=== PATIENT | female | born 1955 | race Caucasian/White ===

== ENCOUNTER 2019-07-31 15:44 | Emergency (ER) | payer BC, OTHER, SELFPAY ==
--- NOTE | ~2019-07-31 | XR_ITS ---
EXAMINATION: XR chest 2V EXAM DATE: 07/31/2019 16:01 INDICATION: Cough and fever. COPD. TECHNIQUE: Frontal and lateral projections of the chest obtained and reviewed. There is no prior kobe dy for comparison. FINDINGS: Moderate hyperinflation. Left midlung zone granuloma. The lungs are clear. There are no p leural effusions. The cardiomediastinal silhouette is within normal limits. There is no pneumothora x suspected. The bones and soft tissues are unremarkable. IMPRESSION: Moderate hyperinflation. Reviewed, dictated and finalized at location B. [employer] IMPRESSION: Moderate hyperinflation.
--- NOTE | 2019-07-31 15:48 | ED.URI ---
HPI - URI/Sore Throat General Chief Complaint: Upper Respiratory Infection Stated Complaint: cough/fever/sob Time Seen by Provider: 07/31/19 16:05 Source: patient and RN notes reviewed Mode of arrival: ambulatory Limitations: no limitations History of Present Illness HPI Narrative: 63-year-old female with history of COPD, smoker presents with concern for cough with yellow sputum, increased shortness of breath. Reports she used her albuterol inhaler this morning with a little relief. She denies fever, nasal congestion, rhinorrhea, sore throat. MD elicited complaint: cough Related Data Home Medications Medication Instructions Recorded Confirmed escitalopram oxalate 10 mg DAILY 07/31/19 07/31/19 montelukast 10 mg HS 07/31/19 07/31/19 omeprazole 40 mg DAILY 07/31/19 07/31/19 rosuvastatin 5 mg DAILY 07/31/19 07/31/19 tiotropium bromide [Spiriva with 18 mcg INHALATION DIRECTED 07/31/19 07/31/19 HandiHaler] Allergies Allergy/AdvReac Type Severity Reaction Status Date / Time erythromycin base Allergy Mild VOMITING Verified 11/28/10 15:05 Penicillins Allergy Mild Rash Verified 02/13/19 20:23 Tetanus Vaccines and Toxoid Allergy Mild SWELLING Verified 11/28/10 15:05 Review of Systems Review of Systems: Narrative: CONSTITUTIONAL: Denies malaise, chills, sweats, or fever. EYES: Denies visual changes, redness, or discharge. ENT: Denies rhinorrhea, congestion, sinus pain, otalgia and sore throat. CARDIOVASCULAR: Denies chest pain, palpitations, or edema. RESPIRATORY: Reports cough, dyspnea. GASTROINTESTINAL: Denies abdominal pain, nausea, vomiting, diarrhea SKIN: Denies rash or itching. MUSCULOSKELETAL: Denies myalgia. NEUROLOGIC: Denies headache. All systems reviewed & are unremarkable except as noted in HPI and below PMFSH Social History Social History Gender identity (if verbalized by the patient): Female Comments At time of signature, agree with nursing past medical, surgical, social and family history. There is no relevant family history pertinent to the presenting complaint Exam Narrative: Exam Narrative: GENERAL: Well-appearing, well-nourished, and in no acute distress. HEAD: Normocephalic, atraumatic. EYES: PERRLA, conjunctivae clear, and EOMI. ENT: Nares clear, turbinates pink, no discharge. Mucous membranes moist. TM pearly sandoval with dull light reflex bilaterally; no tragal tenderness. Oropharynx not erythematous without lesions. Tonsils not enlarged and without exudate, no drooling, no hoarseness, no trismus. NECK: Supple. No lymphadenopathy CHEST: Clear to auscultation, breath sounds equal, lower lobes diminished. Scattered expiratory wheeze, no rhonchi, rales, or stridor. No respiratory distress, speaks in full sentences. HEART: Regular rate and rhythm. No murmur heard. Normal peripheral pulses. SKIN: Warm, dry, no rash. NEURO: Alert and oriented x3. PSYCH: Normal mood and affect Course Course Emergency Course: Patient is aware of diagnosis, understands and agrees to treatment plan. Anticipatory guidance given. Patient agrees to follow-up as directed and is aware of reasons to seek care at the emergency department. Portions of this record may have been created with voice recognition software Vital Signs Vital signs: Vital Signs Temperature 100.4 F H 07/31/19 15:54 Pulse Rate 101 H 07/31/19 15:54 Respiratory Rate 07/31/19 15:54 Blood Pressure 149/71 H 07/31/19 15:54 Pulse Oximetry 95 07/31/19 15:54 Temperature 100.4 F H 07/31/19 15:54 Pulse Rate 101 H 07/31/19 15:54 Respiratory Rate 20 07/31/19 15:54 Blood Pressure 149/71 H 07/31/19 15:54 Pulse Oximetry 95 07/31/19 15:54 Reviewed. Patient is diagnosed with hypertension MDM - URI/Sore Throat MDM Narrative Medical decision making narrative: Differential diagnosis considered: COPD exacerbation, strep pharyngitis, allergic rhinitis, upper respiratory tract infection, sinusitis, rhinosinusitis, nasopharyngitis. viral ph
[2019-07-31 15:54] VITALS: BP 149/71; PULSE 101; RESP 20; TEMP 38; O2SAT 95
== END 2019-07-31 16:19 | disposition home or self-care (01) ==
PROVIDERS: Emergency Provider Nurse Practitioner
DX: J40 Bronchitis, not specified as acute or chronic (principal); J44.9 Chronic obstructive pulmonary disease, unspecified; F17.200 Nicotine dependence, unspecified, uncomplicated; E78.00 Pure hypercholesterolemia, unspecified; I10 Essential (primary) hypertension; K21.9 Gastro-esophageal reflux disease without esophagitis; M19.90 Unspecified osteoarthritis, unspecified site; F41.9 Anxiety disorder, unspecified; F32.9 Major depressive disorder, single episode, unspecified
CPT/HCPCS: 71046; 99213; G0463

== ENCOUNTER 2019-08-09 12:33 | Emergency (ER) | payer BC, OTHER, SELFPAY ==
[2019-08-09 12:44] VITALS: BP 127/56; PULSE 69; RESP 18; TEMP 36.2; O2SAT 96
--- NOTE | 2019-08-09 12:48 | ED.GENADULT ---
HPI - General Adult General Chief complaint: Upper Respiratory Infection Stated complaint: chest congestion/discomfort/left ear pain Time Seen by Provider: 08/09/19 12:49 Source: patient and RN notes reviewed Limitations: no limitations History of Present Illness HPI narrative: This is a 63 years old female presented office for re-evaluation of cough.Patient stated that her symptom has not resolved with antibiotic and steroid. Last dose of antibiotic was Wednesday. She recently moved here does not have a primary care doctor at this time. She admits to smoke 1 to 1-1/2 pack a day however she is cutting down to half a pack since she has been feeling ill. Denies fever. I reviewed patient previous visit HPI - URI/Sore Throat General Chief Complaint: Upper Respiratory Infection Stated Complaint: cough/fever/sob Time Seen by Provider: 07/31/19 16:05 Source: patient and RN notes reviewed Mode of arrival: ambulatory Limitations: no limitations History of Present Illness HPI Narrative: 63-year-old female with history of COPD, smoker presents with concern for cough with yellow sputum, increased shortness of breath. Reports she used her albuterol inhaler this morning with a little relief. She denies fever, nasal congestion, rhinorrhea, sore throat. Related Data Home Medications Medication Instructions Recorded Confirmed escitalopram oxalate 10 mg DAILY 07/31/19 08/09/19 montelukast 10 mg HS 07/31/19 08/09/19 omeprazole 40 mg DAILY 07/31/19 08/09/19 rosuvastatin 5 mg DAILY 07/31/19 08/09/19 tiotropium bromide [Spiriva with 18 mcg INHALATION DIRECTED 07/31/19 08/09/19 HandiHaler] albuterol sulfate 2 puff INHALATION QID 08/09/19 08/09/19 Allergies Allergy/AdvReac Type Severity Reaction Status Date / Time erythromycin base Allergy Mild VOMITING Verified 11/28/10 15:05 Penicillins Allergy Mild Rash Verified 02/13/19 20:23 Tetanus Vaccines and Toxoid Allergy Mild SWELLING Verified 11/28/10 15:05 Review of Systems Review of Systems: Narrative: CONSTITUTIONAL: Denies fever or feeling ill ENT: Reports sinus congestion/ears pressure CARDIOVASCULAR: Denies chest pain RESPIRATORY: Denies dyspnea, wheezing, cough GASTROINTESTINAL: Denies abdominal pain, nausea, vomiting, diarrhea. GENITOURINARY: Denies urinary symptoms or discharge SKIN: Denies rash MUSCULOSKELETAL: Denies acute back pain, joint pain, or myalgia. NEUROLOGIC: Denies numbness, or focal weakness. [facility] Past Medical History Medical History (Updated 08/09/19 @ 13:27 by MARLON Bueno) Anxiety and depression Arthritis COPD (chronic obstructive pulmonary disease) GERD (gastroesophageal reflux disease) Heavy cigarette smoker HLD (hyperlipidemia) HTN (hypertension) Social History Social History Gender identity (if verbalized by the patient): Female Exam Narrative: Exam Narrative: GENERAL: This is a well-nourished, well-developed patient, in no apparent distress. EYES:Sclera clear/white. Vision is grossly intact. EARS: External ears normal, auditory canals clear and without drainage, TMs normal without perforation. Hearing grossly intact. NOSE: External nose normal with no obvious nasal discharge, nares without redness, no rhinorrhea. THROAT: Mucous membranes moist, posterior pharynx clear. NECK: Neck supple, non-tender without lymphadenopathy, masses or thyromegaly. CARDIOVASCULAR: Regular rate and rhythm without murmurs, gallops, or rubs. RESPIRATORY:Diminished breath sounds throughout, no cough, or wheezing noted during examination. Breath sounds equal bilaterally. No use of accessory muscles or pulse lip breathing. GASTROINTESTINAL: Abdomen soft, non-tender, nondistended. Bowel sounds are active. No hepato-splenomegaly, or palpable masses. No guarding. SKIN: warm, intact with no suspicious lesions or rash, good texture and turgor. NEURO: awake, alert, and oriented to person, place and time. There were no obvious focal neurologic abnormalities. Steady g
== END 2019-08-09 13:13 | disposition home or self-care (01) ==
PROVIDERS: Emergency Provider Nurse Practitioner
DX: J44.9 Chronic obstructive pulmonary disease, unspecified (principal); F41.9 Anxiety disorder, unspecified; F32.9 Major depressive disorder, single episode, unspecified; K21.9 Gastro-esophageal reflux disease without esophagitis; F17.210 Nicotine dependence, cigarettes, uncomplicated; E78.5 Hyperlipidemia, unspecified; I10 Essential (primary) hypertension
CPT/HCPCS: 99213; G0463

== ENCOUNTER 2020-07-13 08:29 | Outpatient (NON) | payer BC, OTHER, SELFPAY ==
[2020-07-13 23:38] LABS: SARS-CoV-2 RNA PCR Negative
== END 2020-07-13 08:30 ==
PROVIDERS: Visit Provider Internal Medicine
DX: R05 Cough (principal); R06.02 Shortness of breath; Z20.822 Contact with and (suspected) exposure to COVID-19
CPT/HCPCS: C9803; U0003

== ENCOUNTER 2020-12-09 13:08 | Emergency (ER) | payer BC, OTHER, SELFPAY ==
--- NOTE | ~2020-12-09 | XR_ITS ---
EXAMINATION: XR chest 2V 12/09/2020 13:31 INDICATION: Shortness of breath, cough and wheezing PROCEDURE: 2 view chest COMPARISON: 07/31/2019. FINDINGS: The lungs are clear. The cardiomediastinal silhouette is within normal limits. There are no pleural effusions. There is no pneumothorax suspected. IMPRESSION: 1: NO ACUTE CARDIOPULMONARY DISEASE. Reviewed, dictated and finalized at location B.
[2020-12-09 13:19] VITALS: BP 116/92; PULSE 72; RESP 28; TEMP 36.7; O2SAT 93
--- NOTE | 2020-12-09 13:25 | ED.URI ---
HPI - URI/Sore Throat General Chief Complaint: Upper Respiratory Infection Stated Complaint: Cough,Breathing Time Seen by Provider: 12/09/20 13:12 Source: patient and family () Mode of arrival: ambulatory Limitations: no limitations History of Present Illness HPI Narrative: 65-year-old female presents to [facility] with complaints of nonproductive cough, shortness of breath and wheezing for the past 2 days. Patient reports that she has a history of COPD and uses inhalers daily. Patient reports that her Pulse ox usually runs 93-96% on room air. Patient reports that she took 1 dose of leftover prednisone yesterday with minimal relief. Patient is a smoker. Patient denies sick contacts. Patient denies recent travel. Patient reports that she last required steroids and antibiotics approximately 2 months ago from bronchitis/COPD exacerbation MD elicited complaint: cough Pertinent past history: COPD Onset (ago): day(s) (2) Able to tolerate fluids by mouth: Yes Related Data Home Medications Medication Instructions Recorded Confirmed escitalopram oxalate 10 mg DAILY 07/31/19 12/09/20 montelukast 10 mg HS 07/31/19 12/09/20 omeprazole 40 mg DAILY 07/31/19 12/09/20 rosuvastatin 20 mg DAILY 07/31/19 12/09/20 albuterol sulfate 2 puff INHALATION QID 08/09/19 12/09/20 [id number] 1 inh INHALATION BID 12/09/20 12/09/20 [[employer]] Allergies Allergy/AdvReac Type Severity Reaction Status Date / Time erythromycin base Allergy Mild VOMITING Verified 11/28/10 15:05 Penicillins Allergy Mild Rash Verified 02/13/19 20:23 Tetanus Vaccines and Toxoid Allergy Mild SWELLING Verified 11/28/10 15:05 Review of Systems Constitutional: Constitutional: Denies chills, Denies fatigue, Denies fever(s) and Denies weakness ENT: Denies dysphagia, Denies dizziness, Denies epistaxis, Denies nasal congestion and Denies sore throat Cardiovascular: Cardiovascular: Denies chest pain, Denies rapid heart rate, Denies radiating jaw, neck or arm pain and Denies slow heart rate Respiratory: Respiratory: Reports cough, Reports dyspnea and Reports wheezing Gastrointestinal: Gastrointestinal: Denies abdominal pain, Denies diarrhea, Denies nausea and Denies vomiting Integumentary/Breasts: Skin/Breast: Denies rash PMFSH Past Medical History Medical History (Updated 12/09/20 @ 13:46 by No Lea APRN) Anxiety and depression Arthritis COPD (chronic obstructive pulmonary disease) GERD (gastroesophageal reflux disease) Heavy cigarette smoker HLD (hyperlipidemia) HTN (hypertension) Surgical History Surgical History (Updated 12/09/20 @ 13:28 by No Lea APRN) History of partial hysterectomy History of tonsillectomy Social History Social History (Updated 12/09/20 @ 13:28 by No Lea APRN) Smoking status: Current every day smoker Gender identity (if verbalized by the patient): Female Comments At time of signature, I agree with nursing past medical, surgical, social and family history. There is no relevant family history pertinent to the presenting complaint. Exam Const: General: no acute distress Nutritional Appearance: well nourished Orientation/consciousness: patient oriented x3 HENMT: Head: normal to inspection Mouth: Yes moist mucous membranes and Yes Abnormal oral and palatal mucosa present Throat: posterior oropharynx normal and uvula midline Resp: Effort & Inspection: not labored Auscultation: wheezes throughout and diminished lung sounds diffuse Other: Mild diminished lung sounds noted throughout with intermittent faint wheezing noted. Pursed lip breathing is noted at times. Patient is able to speak complete sentences with no difficulty. Cardio: Rate: regular rate, not bradycardic and not tachycardic Rhythm: regular rhythm Heart sounds: no murmurs Skin: General skin exam: normal color, no jaundice and no pallor Rashes: no rashes Wounds: no wounds Neuro: General: patient
== END 2020-12-09 13:51 | disposition home or self-care (01) ==
PROVIDERS: Emergency Provider Nurse Practitioner Family; PCP Internal Medicine
DX: J44.9 Chronic obstructive pulmonary disease, unspecified (principal); J44.0 Chronic obstructive pulmonary disease with (acute) lower respiratory infection; F41.9 Anxiety disorder, unspecified; F32.9 Major depressive disorder, single episode, unspecified; M19.90 Unspecified osteoarthritis, unspecified site; K21.9 Gastro-esophageal reflux disease without esophagitis; F17.210 Nicotine dependence, cigarettes, uncomplicated; E78.5 Hyperlipidemia, unspecified; I10 Essential (primary) hypertension
CPT/HCPCS: 71046; 99213; G0463